=== PATIENT | male | born 1975 | race Caucasian/White ===

== ENCOUNTER 2016-12-24 19:01 | Emergency (ER) | payer BC, OTHER ==
[~2016-12-24] VITALS: Ht 180.3 cm; Wt 104.3 kg
[2016-12-24] MEDS ORDERED: LOSA25TA8 PO (19:13)
[2016-12-24] MEDS ORDERED: AMOX875T2 PO (19:15)
[2016-12-24 21:10] VITALS: BP 138/89
--- NOTE | 2016-12-24 22:10 | REPUSA ---
CLINICAL HISTORY: Perineal abscess TECHNIQUE: US soft tissue COMPARISON: No study for comparison is available at the time of interpretation. Focused ultrasound was performed in the region of the perineum. There is a complex subcutaneous collection measuring 5.1 x 2.8 x 2.3 cm consistent with abscess. IMPRESSION: Complex 5 cm collection in the region of the perineum, consistent with abscess.
[2016-12-24] MEDS ORDERED: LIDOCAINE 1% MDV 20ML VIAL As Ordered ONE (22:12)
[2016-12-24] MEDS ORDERED: LIDOCAINE 1% MDV 20ML VIAL SC ONE (22:15)
[2016-12-24] MEDS ORDERED: IBUP80TA PO (23:10)
[2016-12-24] MEDS ORDERED: BACT800T5 PO (23:10)
[2016-12-24] MEDS ORDERED: NORCO 5/325MG TABLET (BULK) PO ONE (23:15)
[2016-12-24] MEDS ORDERED: BACTRIM 160MG/800MG DS TAB PO ONE (23:15)
== END 2016-12-24 23:20 | disposition home or self-care (01) ==
LOC: M ED 20:03
DX: L02.214 Cutaneous abscess of groin (principal); I10 Essential (primary) hypertension; Z79.899 Other long term (current) drug therapy